=== PATIENT | female | born 1990 | race African-American/Black ===

== ENCOUNTER 2017-10-30 16:41 | Emergency (ER) | payer OTHER ==
[~2017-10-30] VITALS: Ht 153.7 cm; Wt 102.1 kg
[2017-10-30] MEDS ORDERED: NKM (17:05)
[2017-10-30] MEDS ORDERED: IBUPROFEN600 MG ORAL (17:20)
--- NOTE | 2017-10-30 17:20 | Emergency Room Report ---
History of Present Illness General Chief Complaint: Lower Extremity Injury Source: Patient Present Illness HPI Pt. presents to the ED c/o or out of 10 in severity pain, tenderness to the left anterior knee times one day. Patient reports pain is exacerbated upon walking. Patient sustained an injury while at work . Patient describes that a door hit her anterior knee. She denies loss of consciousness, neck or back pain. Denies numbness tingling or loss of sensation or gross motor movements of the extremities, incontinence of bowel or bladder. Denies CP, Palpitations, LOC, AMS, dizziness, Changes in Vision, Sensation, paresthesias, or a sudden severe headache. Allergies: Coded Allergies: No Known Allergies (Unverified , 10/30/17) Patient History Past Medical History: see triage record Past Surgical History: none Pertinent Family History: none Last Menstrual Period: implants on the LUE Now: No Reviewed Nursing Documentation: PMH: Agreed; PSxH: Agreed Nursing Documentation-PMH Past Medical History: No Stated History Review of Systems All Other Systems: negative except mentioned in HPI Physical Exam Vital Signs Date Time Temp Pulse Resp B/P (MAP) Pulse Ox O2 Delivery O2 Flow Rate FiO2 10/30/17 17:02 98.6 73 16 117/68 98 Room Air 98.6 Sp02 EP Interpretation: reviewed, normal General Appearance: no apparent distress, alert, GCS 15, non-toxic Head: normocephalic, atraumatic ENT: hearing grossly normal, normal voice Neck: full range of motion Respiratory: lungs clear, normal breath sounds, speaking full sentences Cardiovascular #1: regular rate, rhythm Cardiovascular #2: 2+ dorsalis pedis (L) - tibial Musculoskeletal: back normal, gait/station normal, normal range of motion, tender - mild anterior left knee tenderness, no appreciable swelling noted. no increased in laxity, neg. ant and post drawer sign. Neurologic: alert, oriented x3, responsive, motor strength/tone normal, sensory intact, normal gait - mild compensation, speech normal, grossly normal Psychiatric: judgement/insight normal Skin: normal color, no rash, warm/dry, well hydrated Medical Decision Making PA Attestation Dr. Dyer is my supervising Physician whom patient management has been discussed with. Diagnostic Impression: Primary Impression: Contusion of knee, left Qualified Codes: S80.02XA - Contusion of left knee, initial encounter ER Course Pt. presents to the ED c/o or out of 10 in severity pain, tenderness to the left anterior knee times one day. Patient reports pain is exacerbated upon walking. Patient sustained an injury while at work . Patient describes that a door hit her anterior knee. She denies loss of consciousness, neck or back pain. Denies numbness tingling or loss of sensation or gross motor movements of the extremities, incontinence of bowel or bladder. Denies CP, Palpitations, LOC, AMS, dizziness, Changes in Vision, Sensation, paresthesias, or a sudden severe headache. Ddx considered but are not limited to Fracture, dislocation, contusion, Sprain/ Strain/Spasm, Epidural abscess, Neoplastic mets. Vital signs: are WNL, pt. is afebrile H&PE are most consistent with left knee contusion. Mechanism of the injury and patient presentation does not warrant imaging at this time. This was discussed with patient and was a collaborative decision. ORDERS: None. ED INTERVENTIONS: - Discussed with patient that she should rest tomorrow, R.I.C.E on the affected extremity, and that she'll be prescribed some anti-inflammatory medications for pain. DISCHARGE: At this time pt. is stable for d/c to home. Will provide printed patient care instructions, and any necessary prescriptions. Care plan and follow up instructions have been discussed with the patient prior to discharge. Last Vital Signs Date Time Temp Pulse Resp B/P (MAP) Pulse Ox O2 Delivery O2 Flow Rate FiO2 10/30/17 17:02 98.6 73 16 117/68 98 Room Air 98.6 Disposition: HOME, SELF-CARE Condition: Stable Scripts Ibuprofen* (MOTRIN*) 600 Mg Tablet 600 MG ORAL THREE TIMES A DAY, #20 TAB 0 Refills Prov: Elo Arguello 10/30/17 Departure Forms: Return to Work Return to Work Date: Nov 01, 2017 Work Restrictions: None Return to Full Activity: Nov 01, 2017 Patient Instructions: Contusion, [id number], Knee Pain, [id number] Additional Instructions: Take medications as directed. Follow up with a Primary Care Provider in 3-5 days, even if your symptoms have resolved. --Please review list of primary care clinics, if you do not already have a primary care provider Return sooner to ED if new symptoms occur, or current symptoms become worse. - Please note that this Emergency Department Report was dictated using [employer]inkit[employer] brusher technology software, occasionally this can lead to erroneous entry secondary to interpretation by the dictation equipment. Elo Arguello Oct 30, 2017 17:20
[2017-10-30 17:29] VITALS: BP 134/89
== END 2017-10-30 17:29 | disposition home or self-care (01) ==
LOC: EMR 17:12
DX: S80.02XA Contusion of left knee, initial encounter (principal); W22.8XXA Striking against or struck by other objects, initial encounter; Y92.239 Unspecified place in hospital as the place of occurrence of the external cause; Y99.0 Civilian activity done for income or pay
CPT/HCPCS: 99283

== ENCOUNTER 2019-07-26 18:06 | Emergency (ER) | payer OTHER ==
[~2019-07-26] VITALS: Ht 165.1 cm; Wt 99.8 kg
[~2019-07-26 18:06] MED LIST: IBUPROFEN600 MG ORAL; NAPROXEN500 M2 ORAL; NKM
[2019-07-26] MEDS ORDERED: Fluorescein Strips LEFT EYE ONE (18:30)
[2019-07-26] MEDS ORDERED: Morgan Lens TOPIC ONE (18:30)
[2019-07-26] MEDS ORDERED: Tetracaine 0.5% Opth 4ml Soln LEFT EYE ONE (18:30)
[2019-07-26 19:18] VITALS: BP 122/86
--- NOTE | 2019-07-26 19:43 | Emergency Room Report ---
History of Present Illness General Chief Complaint: Eye Problems Source: Patient Present Illness HPI 28-year-old female with no symptom past medical history here complaining of left eye irritation after having small amount of bleach splashed in her left eye. Patient reports that she was cleaning as the bottle of bleach spelled and small droplets went inside her left eye. Patient denies any blurred vision, eye pain, photophobia. Complains of irritation as well as pruritus of the left eye. Visual acuity is within normal limits. Patient is not wearing any contact lenses. Denies any eye discharge. Denies any inhalation of the bleachers patient reports that she was wearing a mask. Denies shortness of breath, chest pain, palpitation, abdominal pain, nausea vomiting. Reports that she applied a wet clot to the left thigh after the incident occurred at 1 PM today. Patient is here sitting comfortably with stable vital signs. Allergies: Coded Allergies: No Known Allergies (Unverified , 10/30/17) Patient History Past Medical History: see triage record Past Surgical History: unable to obtain Pertinent Family History: none Last Menstrual Period: bcp Now: No Immunizations: UTD Reviewed Nursing Documentation: PMH: Agreed; PSxH: Agreed Nursing Documentation-PMH Past Medical History: No Stated History Review of Systems All Other Systems: negative except mentioned in HPI Physical Exam Vital Signs Date Time Temp Pulse Resp B/P (MAP) Pulse Ox O2 Delivery O2 Flow Rate FiO2 16/19 18:20 98.1 77 20 125/86 (99) 98 Room Air Sp02 EP Interpretation: reviewed, normal General Appearance: no apparent distress, alert, GCS 15, non-toxic Head: normocephalic, atraumatic Eyes: left eye other - Left conjunctiva injected, corneal abrasion noted ENT: hearing grossly normal, normal pharynx, no angioedema, normal voice Neck: full range of motion, supple/symm/no masses Respiratory: chest non-tender, lungs clear, normal breath sounds, speaking full sentences Cardiovascular #1: regular rate, rhythm, no edema, no murmur Gastrointestinal: normal bowel sounds, non tender, soft, non-distended, no guarding, no rebound Genitourinary: no CVA tenderness Musculoskeletal: back normal Neurologic: alert, motor strength/tone normal, oriented x3, sensory intact, responsive, speech normal Psychiatric: normal inspection Skin: no rash Lymphatic: normal inspection Procedures Eye Procedure Eye Procedure : Consent: Verbal Eye Irrigated w/ Saline (ccs): 500 Patient Tolerated: Well Complications: None Progress Tetracaine and fluorescein strips were applied and corneal abrasion was visualized via use of wood lamp Medical Decision Making PA Attestation All my diagnosis and treatment plans were reviewed ad discussed with my supervising physician Dr. Angulo Diagnostic Impression: Primary Impression: Corneal abrasion Additional Impression: Chemical conjunctivitis ER Course 28-year-old female with no symptom past medical history here complaining of left eye irritation after having small amount of bleach splashed in her left eye. Patient reports that she was cleaning as the bottle of bleach spelled and small droplets went inside her left eye. Patient denies any blurred vision, eye pain, photophobia. Complains of irritation as well as pruritus of the left eye. Visual acuity is within normal limits. Patient is not wearing any contact lenses. Denies any eye discharge. Denies any inhalation of the bleachers patient reports that she was wearing a mask. Denies shortness of breath, chest pain, palpitation, abdominal pain, nausea vomiting. Reports that she applied a wet clot to the left thigh after the incident occurred at 1 PM today. Patient is here sitting comfortably with stable vital signs. Ddx considered but are not limited to: bacterial conjunctivitis, allergic conjunctivitis, viral conjunctivitis, periorbital cellulitis, global trauma, corneal abrasion Vital signs: are WNL, pt. is afebrile H&PE are most consistent with: Left corneal abrasion, chemical conjunctivitis ORDERS: [facility] ophthalmic ED INTERVENTIONS: Bijan lens treatment, Procedure DISCHARGE: At this time pt. is stable for d/c to home. Will provide printed patient care instructions, and any necessary prescriptions. Care plan and follow up instructions have been discussed with the patient prior to discharge. Patient to follow-up with tobacco primer machine operator in 24 to 48 hours, apply eyedrops as prescribed. Wear protective sunglasses, avoid eye make-up. If worsening symptoms return to emergency room. At this time no further imaging is needed as no foreign body was visualized Last Vital Signs Date Time Temp Pulse Resp B/P (MAP) Pulse Ox O2 Delivery O2 Flow Rate FiO2 07/26/19 19:18 98.6 16 122/86 99 Room Air 07/26/19 18:20 77 Disposition: HOME, SELF-CARE Condition: Stable Scripts Ciprofloxacin (Ciprofloxacin HCl) 2.5 Ml Drops 2 DROP LEFT EYE Q4H for 7 Days, #5 ML 2gtt left eye q2h x2d then q4h x5d Prov: Shea Camejo 07/26/19 Patient Instructions: Corneal Abrasion, [id number], Chemical Conjunctivitis, [id number] Additional Instructions: Take medication as directed, follow-up with your primary care provider and tobacco primer machine operator, if worsening symptoms return to the emergency room Shea Camejo Jul 26, 2019 19:43
[2019-07-26] MEDS ORDERED: CILOXAN 0.3% O1 DROP LEFT EYE (19:47)
[2019-07-26 20:05] VITALS: BP 122/84
== END 2019-07-26 20:05 | disposition home or self-care (01) ==
LOC: EMR 18:30
DX: S05.02XA Injury of conjunctiva and corneal abrasion without foreign body, left eye, initial encounter (principal); H11.89 Other specified disorders of conjunctiva; X58.XXXA Exposure to other specified factors, initial encounter; Y92.9 Unspecified place or not applicable
CPT/HCPCS: 99283

== ENCOUNTER 2019-10-31 17:58 | Emergency (ER) | payer OTHER ==
[~2019-10-31] VITALS: Ht 165.1 cm; Wt 99.8 kg
[~2019-10-31 17:58] MED LIST changes: +CILOXAN 0.3% O1 DROP LEFT EYE
[2019-10-31 18:24] VITALS: BP 125/79
--- NOTE | 2019-10-31 18:27 | Emergency Room Report ---
History of Present Illness General Chief Complaint: Lower Back Pain or Injury Source: Patient Present Illness HPI 29-year-old female with no significant past medical history here complaining of low back pain after trying to push a heavy bed at work. Patient works at [employer]. Denies any fall or injury. This happened right before taking into the emergency room. Has not taken medication for symptom relief. Rates the pain 5 out of 10 without radiation, denies any tingling and numbness, saddle paresthesia, urinary or bowel incontinence. Has full range of motion. No bony tenderness noted. Denies at this time. Denies fever and chills, generalized body ache, cough and congestion. Denies any recent travel. COVID-19 risk:Contact w/high r: No COVID-19 risk:Travel to affect: No Has patient experienced epps: No Allergies: Coded Allergies: No Known Allergies (Unverified , 10/30/17) Patient History Past Medical History: see triage record Past Surgical History: none Pertinent Family History: none Now: No - 10/26/19 Reviewed Nursing Documentation: PMH: Agreed; PSxH: Agreed Nursing Documentation-PMH Past Medical History: No Stated History Review of Systems All Other Systems: negative except mentioned in HPI Physical Exam Vital Signs Date Time Temp Pulse Resp B/P (MAP) Pulse Ox O2 Delivery O2 Flow Rate FiO2 10/31/19 18:16 98.1 66 16 125/79 (94) 98 Room Air Sp02 EP Interpretation: reviewed, normal General Appearance: no apparent distress, alert, GCS 15, non-toxic Head: normocephalic, atraumatic Eyes: bilateral eye normal inspection, bilateral eye PERRL ENT: hearing grossly normal, normal pharynx, no angioedema, normal voice Neck: full range of motion, supple/symm/no masses Respiratory: chest non-tender, lungs clear, normal breath sounds, no rhonchi, speaking full sentences Cardiovascular #1: regular rate, rhythm, no edema, no murmur Gastrointestinal: normal bowel sounds, non tender, soft, non-distended, no guarding, no rebound Rectal: deferred Genitourinary: no CVA tenderness Musculoskeletal: back normal, digits/nails normal, no calf tenderness, pelvis stable, gait/station normal, non-tender Neurologic: alert, motor strength/tone normal, oriented x3, sensory intact, responsive, speech normal Psychiatric: judgement/insight normal, memory normal, mood/affect normal, no suicidal/homicidal ideation Skin: no rash Lymphatic: no adenopathy Medical Decision Making PA Attestation All diagnoses and treatment plans were reviewed and discussed with my supervising physician Dr. Bhagat Diagnostic Impression: Primary Impression: Lumbar strain ER Course 29-year-old female with no significant past medical history here complaining of low back pain after trying to push a heavy bed at work. Patient works at [employer]. Denies any fall or injury. This happened right before taking into the emergency room. Has not taken medication for symptom relief. Rates the pain 5 out of 10 without radiation, denies any tingling and numbness, saddle paresthesia, urinary or bowel incontinence. Has full range of motion. No bony tenderness noted. Denies at this time. Denies fever and chills, generalized body ache, cough and congestion. Denies any recent travel. Ddx considered but are not limited to: Lumbar spine sprain, strain, fracture, contusion, neuropathy Vital signs: are WNL, pt. is afebrile H&PE are most consistent with: Lumbar strain ORDERS: No x-ray necessary at this time as no bony tenderness or fall injury and reported. Tylenol, lidocaine patch ER intervention: None DISCHARGE: At this time pt. is stable for d/c to home. Will provide printed patient care instructions, and any necessary prescriptions. Care plan and follow up instructions have been discussed with the patient prior to discharge. Advised patient to avoid taking anything within the ibuprofen family at this time. Alternate between icing and heating the affected area, follow-up primary care provider, if worsening symptoms return to the emergency room Last Vital Signs Date Time Temp Pulse Resp B/P (MAP) Pulse Ox O2 Delivery O2 Flow Rate FiO2 10/31/19 18:24 98.1 66 16 125/79 98 Room Air Disposition: HOME, SELF-CARE Condition: Stable Scripts Lidocaine Patch* (Lidoderm Patch*) 1 Each Adh..patch 1 PATCH TOPIC DAILY, #30 PATCH Patch(es) may remain in place for up to 12 hours in any 24-hour period. Prov: Shea Camejo 10/31/19 Acetaminophen* (TYLENOL EXTRA STRENGTH*) 500 Mg Tablet 2 TAB ORAL Q6H PRN for Mild Pain/Temp > 100.5, #30 TAB 0 Refills Prov: Shea Camejo 10/31/19 Patient Instructions: Lumbosacral Strain Additional Instructions: Take medication as directed, follow-up primary care provider, if worsening symptoms return to the emergency room Shea Camejo Oct 31, 2019 18:27
[2019-10-31] MEDS ORDERED: LIDODERM700 M1 TOPIC (18:28)
[2019-10-31] MEDS ORDERED: TYLENOL EXTRA500 MG ORAL (18:28)
[2019-10-31 18:32] VITALS: BP 125/79
== END 2019-10-31 18:32 | disposition home or self-care (01) ==
LOC: EMR 18:30
DX: S39.012A Strain of muscle, fascia and tendon of lower back, initial encounter (principal); X58.XXXA Exposure to other specified factors, initial encounter; Y92.9 Unspecified place or not applicable
CPT/HCPCS: 99282